=== PATIENT | female | born 1950 | race Caucasian/White ===

== ENCOUNTER 2019-01-18 07:47 | Day surgery (SDC) | payer OTHER ==
[2017-03-22 19:15] VITALS: BMI 39.6
[2019-01-18] MEDS ORDERED: LIDOCAINE 1% 20 ML MDV ID STA (08:20)
[2019-01-18] MEDS: LIDOCAINE 1% 20 ML MDV ID ONE (10:19)
[2019-01-18] MEDS ORDERED: DIPRIVAN 20 ML VIAL IVP ONE ×2 (10:20)
[2019-01-18 13:51] VITALS: BP 125/77; TEMP 97.2
--- NOTE | 2019-01-19 11:15 | OP ---
INDICATIONS FOR PROCEDURE: 68 year old female presents for colonoscopy exam. She has had a little bit of bright red blood from rectum. She has a history of adenomatous polyps 4.5 years ago on colonoscopy. She also has a history of Masters's disease. She presents for endoscopy for surveillance as well. MEDICATIONS: SEE ANESTHESIA NOTES. PROCEDURE: ENDOSCOPY. ESOPHAGEAL BIOPSIES COLONOSCOPY SNARE POLYPECTOMY REPORT: The risks, benefits, alternatives and limitations were discussed in detail with the patient. Informed consent was obtained. After adequate sedation was achieved, the video endoscope was introduced in the posterior pharynx and esophagus under direct vision and easily advanced down to the second portion of the duodenum. I then slowly withdrew. The duodenal mucosa appeared unremarkable as did the duodenal bulb. The antrum body is relatively unremarkable. The scope was retroflexed to look at the cardia and fundus. She has a large hiatal hernia with a 1/4 to 1/3 of her stomach above the diaphragm. The scope was anteflexed and withdrawn back through the esophagus. The GE junction was irregular with tongues of mucosa extending proximal to 30cm. The gastric folds were about 31 to 31.5cm. Four quadrant biopsies were obtained and targeted biopsies at 31cm. Similar biopsies were obtained at 30cm as well. The remaining esophagus appeared unremarkable. The patient tolerated the procedure well with stable vital signs and pulse oximetry throughout. The patient's bed was turned and a digital rectal exam revealed good tone, no masses. The colonoscope was introduced into the rectum and advanced under direct visual guidance to the cecum. The cecum was identified by the appendiceal orifice and IC valve. In the cecum there is a diminutive 2-3mm polyp that I destroyed using a snare. I then slowly withdrew the scope in circumferential manner and examined the mucosa quite carefully. I looked on the proximal and distal sides of folds and flexures as best as possible.I was able to retroflex the scope in the right colon and left colon to increase visualization. In the transverse colon there was a 4-5mm sessile polyp. I removed this polyp by snare technique no tissue was remaining to retrieve. Scattered throughout the sigmoid there was several small mouth diverticuli. On retroflex view of the anal canal there non engorged hemorrhoid vein. No other abnormalities were noted. The prep good and the withdraw time was 9 minutes and 16 seconds. The patient tolerated the procedure well with stable vital signs and pulse oximetry throughout. IMPRESSION: 1. Large hiatal hernia 2. Short segment Masters's as above 3. 2 diminutive colon polyps destroyed 4. Sigmoid diverticulosis RECOMMENDATIONS: 1. Strict reflux precautions 2. Await esophageal biopsies results and there is no evidence of dysplasia or atypia I recommend repeat endoscopy examination again in 3 years. 3. High fiber diet 4. Surveillance colonoscopy examination again in 5 years. 5. We will see her back in the office as needed CC: Dr. Yousuf BEAULIEU
== END 2019-01-18 12:00 | disposition home or self-care (01) ==
LOC: SURG 07:47 → EEVIPCON 08:00 → SURG 12:00
PROVIDERS: ATTEND Internal Medicine Gastroenterology
DX: K22.70 Barrett's esophagus without dysplasia (principal); R10.32 Left lower quadrant pain; Z80.0 Family history of malignant neoplasm of digestive organs; K62.5 Hemorrhage of anus and rectum; Z86.010 Personal history of colon polyps; K44.9 Diaphragmatic hernia without obstruction or gangrene; K57.30 Diverticulosis of large intestine without perforation or abscess without bleeding; K63.5 Polyp of colon